=== PATIENT | male | born 1930 | race Caucasian/White ===

== ENCOUNTER → 2016-08-31 | Outpatient (CLI) | payer OTHER, BC ==
[~2016-08-31] VITALS: Ht 175.3 cm; Wt 97.5 kg
[~2016-08-31] MED LIST: ASPIR 8181 MG PO; BRAIN MIGHT-DH1 EACH PO; BRIMONIDINE TAR1 BO1 OP; CELEBREX 200 M200 M1 PO; COREG CR20 MG PO; COUMADIN 5 MG TA5 M1; CRESTOR10 MG PO; FLOMAX0.4 MG PO; HYDROCHLOROTHIA25 M2 PO; KLOR-CON 1010 MEQ PO; KLOR-CON PO; LASIX 40 MG TAB40 M2 PO; LOSARTAN PO; METFORMIN PO; NORVASC10 MG PO; OCUVITE TABLET1 EAC1 PO; OMEGA-3 KRILL1 EACH PO; PRADAXA150 MG PO; PRILOSEC 20 MG20 MG PO; PRINIVIL40 MG PO; SLO-NIACIN500 MG PO; TRAVATAN Z5 ML OP; TRICOR145 MG PO
--- NOTE | ~2016-08-31 | P ---
[facility] [place] [address] PROCEDURE REPORT Name: VIRGINIA MEDINA [id number] Admission: 08/31/16 Attend Phys: Greg Michele Discharge: Date of : 28 Report #: [id number] THIS REPORT FOR: //name// CC: Greg Isidro MD DATE OF SERVICE: 08/31/2016 PROCEDURE PERFORMED: Colonoscopy with biopsies. HISTORY OF PRESENT ILLNESS: The patient is an 85-year-old male with a history of anemia and reportedly Hemoccult negative times 1 recently. He denies any obvious bright red blood per rectum. He does have a previous history of prostate cancer, status post radiation and actually underwent a flexible sigmoidoscopy by myself with treatment of radiation proctitis several years ago. Again, he denies any obvious bright red blood per rectum or melena. He does take aspirin, Coumadin and Celebrex on a p.r.n. basis. Upper endoscopy was just performed, which showed a mild gastritis, no bleeding, possible short segment of Lo's as well. Biopsies were obtained. DESCRIPTION OF PROCEDURE: The risks and benefits of the procedure were explained to the patient, those risks including but not limited to bleeding, perforation and the risk of sedation. He understood these risks and gave informed consent. Sedation was given using propofol per anesthesia. Next, a digital rectal exam was initially performed, which was normal. Next, using a standard [employer] colonoscope, the scope was placed in the patient's anus and advanced under direct vision to the cecum. The overall prep was excellent. In the cecum, there was a 3-mm sessile polyp. This was removed with cold forceps, otherwise normal. The ileocecal valve was normal. The ascending, transverse and descending colon were normal. Multiple small diverticula were noted in the sigmoid colon. No evidence of inflammation, otherwise normal. The rectal mucosa was normal. There was no evidence of radiation proctitis. Small non-bleeding internal hemorrhoids were also noted. The scope was then withdrawn and the procedure terminated. The patient tolerated the procedure well. IMPRESSION: 1. Small colonic polyp. 2. Sigmoid diverticulosis. 3. Small internal hemorrhoids. 4. Otherwise normal colonoscopy. RECOMMENDATIONS: 1. Await biopsy results. 2. There was no evidence of bleeding on EGD or colonoscopy today. There was a mild gastritis. I would recommend continuing PPI therapy and continuing on oral [address] [address] PROCEDURE REPORT Name: VIRGINIA MEDINA Room #: REG CLI Rubio#: [id number] Admission: 08/31/16 Attend Phys: Greg Michele Discharge: Date of : 28 Report #: [id number] iron. Consider helical testing times 3. If they remain negative and the anemia persists, may need to consider a heme consult. If any stools are heme positive in the future, then would consider an M2 capsule endoscopy at that point. Thank you for allowing me to participate in his care. <ELECTRONICALLY SIGNED> By: Greg Ureña MD 09/05/16 1400 1009 1027 Greg Ureña MD /nt
--- NOTE | ~2016-08-31 | S ---
[facility] [place] [address] SURGICAL PATH RPT PROCEDURE Name: VIRGINIA MEDINA Room #: REG CL M..#: [id number] Admission: 08/31/16 Date of : 28 Discharge: Report #: [id number] Path Case #: [id number] PATHOLOGY REPORT COLLECTION DATE: 08/31/2016 RECEIVED DATE: 08/31/2016 SUBMITTING PHYS: Dr. Greg Ureña OTHER PHYS: Dr. Emerson Isidro SPECIMEN(S) RECEIVED: A.Bx of duodenum to r/o sprue B.Bx of gastritis C.Bx of distal esophagus D.Polyp at cecum * * * * * * * * * * * * FINAL DIAGNOSIS: A. Duodenum "biopsy of duodenum, rule out sprue": - No diagnostic changes. - There is no evidence of acute cryptitis, granulomas, adenomatous change, sprue-like changes, or malignancy. B. Gastric biopsy "biopsy of gastritis": - Mild chronic reactive gastropathy. - There is no evidence of acute cryptitis, granulomas, adenomatous change, or malignancy. - Immunoperoxidase stain for Helicobacter pylori is negative. C. Glandular gastric type mucosa "biopsy of distal esophagus": - Glandular gastric-type mucosa with reactive mildly hyperplastic changes with few cystically dilated glands. - There is no evidence of goblet cell metaplasia, dysplasia or malignancy. D. Colonic mucosa "polyp at cecum": - Fragments of tubular adenoma. - There is no evidence of high-grade dysplasia or malignancy. PATHOLOGIST: Clemente Saba M.D. REPORT ELECTRONICALLY SIGNED BY: Clemente Saba M.D. DATE/TIME: 09/02/2016 13:03 * * * * * * * * * * * * GROSS PATHOLOGY: A. Received in formalin labeled "Virginia Lawson, biopsy of duodenum to R/O sprue," are two segments of sanabria soft tissue measuring 0.6 x 0.4 x 0.1 cm in aggregate dimensions and measuring 0.4 cm each in maximum dimension. The specimen is submitted entirely in cassette A1. B. Received in formalin labeled "Virginia Lawson, [place] [address] SURGICAL PATH RPT PROCEDURE Name: VIRGINIA MEDINA [id number] Admission: 08/31/16 Date of : 28 Discharge: Report #: [id number] Path Case #: [id number] R/O H. pylori," are two segments of sanabria soft tissue measuring 0.6 x 0.6 x 0.1 cm in aggregate dimensions and ranging from 0.4 to 0.6 cm in maximum dimension. The specimen is submitted entirely in cassette B1. C. Received in formalin labeled "Virginia Lawson, biopsy of distal esophagus," is a segment of sanabria soft tissue measuring 0.7 cm in maximum dimension. The specimen is submitted entirely in cassette C1. D. Received in formalin labeled "Virginia Lawson, polyp at cecum," are two segments of sanabria soft tissue measuring 0.5 x 0.3 x 0.1 cm in aggregate dimensions and ranging from 0.3 to 0.5 cm in maximum dimension. The specimen is submitted entirely in cassette D1. (CAA; 09/01/2016) CLINICAL HISTORY: Anemia A. R/O sprue B. R/O H. pylori C. R/O Lo's INITIAL CPT CODE(S): A; 52750 B; 64501, 36941 C; 68250 D; 07127 Professional services performed by [facility] at [facility] [address], [place] [address] Technical services performed by [facility] at [address] [place] [address], [address], [place] [address]. [facility] [address] [place] [address] PHONE: [phone] DIRECTOR: Cuong Vega M.D. * * * END OF REPORT * * *
--- NOTE | ~2016-08-31 | P ---
[facility] [place] [address] PROCEDURE REPORT Name: VIRGINIA MEDINA [facility] #[facility] [id number] Admission: 08/31/16 Attend Phys: Greg Michele Discharge: Date of : 28 Report #: [id number] THIS REPORT FOR: //name// CC: Greg Isidro DATE OF SERVICE: 08/31/2016 DATE OF SERVICE: 08/31/2016 PROCEDURE PERFORMED: Upper endoscopy with biopsies. HISTORY OF PRESENT ILLNESS: The patient is an 85-year-old male with a history of anemia, reportedly Hemoccult negative x 1 recently. He has been on oral iron for the last month. He takes aspirin, Celebrex on a p.r.n. basis and Coumadin, but is also on omeprazole on a daily basis. Plan is for EGD and colonoscopy today. DESCRIPTION OF PROCEDURE: The risks and benefits of the procedure were explained to the patient, those risks including but not limited to bleeding, perforation, the risk of sedation. He understood these risks and gave informed consent. Sedation was given using propofol per anesthesia. Next, using a standard [employer] upper endoscope, the scope was placed in the patient's mouth and advanced under direct vision through the esophagus, stomach and into the second portion of the duodenum. The larynx was normal in appearance. The upper and mid esophagus were normal in appearance. In the distal esophagus, possible short segment of Lo's was noted. Biopsies were obtained. There was a mild diffuse gastritis with mild erythema, no evidence of ulcerations or erosions. No bleeding. Biopsies were obtained to rule out H. pylori. The pylorus was normal and patent. The duodenal bulb, first and second portion were all normal. Random biopsies were also obtained to the duodenum to rule out celiac sprue. The scope was then withdrawn and the procedure terminated. The patient tolerated the procedure well. IMPRESSION: 1. Possible short segment Lo's. 2. Mild gastritis. 3. Otherwise, normal upper endoscopy. RECOMMENDATIONS: 1. Await biopsy results. 2. Continue PPI therapy. 3. We will proceed with colonoscopy next today. [address] [address] PROCEDURE REPORT Name: BINAMEGHAVIRGINIA Chema Room #: REG CL Rubio#: [id number] Admission: 08/31/16 Attend Phys: Greg Michele Discharge: Date of : 28 Report #: [id number] Thank you for allowing me to participate in his care. <ELECTRONICALLY SIGNED> By: Greg Ureña MD 09/05/16 1400 0935 1002 Greg Ureña MD /nt
[2016-08-31 08:14] LABS: INR 1.3; PROTIME 13.3 Seconds (9.3-11.4)
== END | disposition home or self-care (01) ==
LOC: GI 07:25
PROVIDERS: Specialist
DX: D12.0 Benign neoplasm of cecum (principal); K29.70 Gastritis, unspecified, without bleeding; K57.30 Diverticulosis of large intestine without perforation or abscess without bleeding; K64.8 Other hemorrhoids; D64.9 Anemia, unspecified; I11.0 Hypertensive heart disease with heart failure; I50.9 Heart failure, unspecified; Z95.0 Presence of cardiac pacemaker; Z85.46 Personal history of malignant neoplasm of prostate; E78.5 Hyperlipidemia, unspecified; E11.9 Type 2 diabetes mellitus without complications; K21.9 Gastro-esophageal reflux disease without esophagitis; Z98.890 Other specified postprocedural states
CPT/HCPCS: 62110; 62900

== ENCOUNTER → 2016-10-05 | Outpatient (CLI) | payer OTHER, BC | LOC: RAD 13:13 | DX: C61 Malignant neoplasm of prostate (principal); M16.0 Bilateral primary osteoarthritis of hip; Z96.643 Presence of artificial hip joint, bilateral ==